=== PATIENT | female | born 1965 | race Caucasian/White ===

== ENCOUNTER 2018-03-11 17:57 | Emergency (ER) | payer OTHER ==
[~2018-03-11] VITALS: Ht 160 cm; Wt 75.5 kg
[2018-03-11 18:15] VITALS: Ht 160 cm; Wt 75.5 kg
[2018-03-11 18:40] LABS: BASOPHILS 0.7 % (0-2); EOSINOPHILS 1.9 % (0-7); HEMATOCRIT 41.6 % (36.0-48.0); IMMATURE GRANULOCYTES 0.3 % (0-5); LYMPHOCYTES 33.4 % (15-50); MCH 30.4 pg (26.0-34.0); MCHC 33.7 g/dL (31.0-37.0); MCV 90.2 fL (80.0-100.0); MEAN PLATELET VOLUME 10.6 fL (7.4-10.4); NEUTROPHILS 57.7 % (40-80); PLATELET COUNT 397 10x3/uL (130-400); RBC 4.61 10x6/uL (4.00-5.40); RDW 14.1 % (11.5-14.5); WBC 9.4 10x3/uL (4.8-10.8)
[2018-03-11 18:56] LABS: APPEARANCE CLEAR (CLEAR); BILIRUBIN NEGATIVE (NEGATIVE); COLOR YELLOW (YELLOW); GLUCOSE 1000 mg/dL (NEGATIVE); KETONE NEGATIVE (NEGATIVE); NITRITE NEGATIVE (NEGATIVE); PROTEIN NEGATIVE (NEGATIVE); SPECIFIC GRAVITY 1.025 (1.005-1.020); UROBILINOGEN NORMAL (NORMAL)
[2018-03-11 19:12] LABS: ALBUMIN 3.7 g/dL (3.4-5.0); BILIRUBIN - TOTAL 0.23 mg/dL (0.2-1.3); CALCIUM 9.4 mg/dL (8.5-10.1); CARBON DIOXIDE 24.8 mmol/L (21.0-32.0); CREATININE - SERUM 1.1 mg/dL (0.6-1.3); POTASSIUM - SERUM 3.8 mmol/L (3.5-5.1); PROTEIN - SERUM 7.5 g/dL (6.4-8.2)
[2018-03-11 21:28] VITALS: BP 121/79
[2018-04-12 12:17] VITALS: Ht 160 cm; Wt 75.5 kg
== END 2018-03-11 21:28 | disposition home or self-care (01) ==
LOC: D.ER 17:57
PROVIDERS: Emergency Medicine
DX: R25.1 Tremor, unspecified (principal); Z97.8 Presence of other specified devices

== ENCOUNTER 2018-04-11 10:16 | Inpatient (IN) | payer OTHER ==
[2018-04-11] VITALS (7 sets, daily range): BP systolic 136–158; BP diastolic 56–80; BMI 27.5
[~2018-04-11] VITALS: Ht 160 cm; Wt 70.5 kg
[2018-04-11 11:18] LABS: BASOPHILS 0.3 % (0-2); EOSINOPHILS 0 % (0-7); HEMATOCRIT 47.2 % (36.0-48.0); HEMOGLOBIN 15.9 g/dL (12-16); IMMATURE GRANULOCYTES 0.2 % (0-5); LYMPHOCYTES 9.8 % (15-50); MCH 30.8 pg (26.0-34.0); MCHC 33.7 g/dL (31.0-37.0); MCV 91.3 fL (80.0-100.0); MONOCYTES 7.9 % (2-11); NEUTROPHILS 81.8 % (40-80); PLATELET COUNT 347 10x3/uL (130-400); RBC 5.17 10x6/uL (4.00-5.40); RDW 13.8 % (11.5-14.5); WBC 16.3 10x3/uL (4.8-10.8)
[2018-04-11 11:30] LABS: APTT 30.3 SECONDS (22.8-39.4); INR 1.05 (0.85-1.17); PROTIME 13.3 SECONDS (11.6-15.0)
[2018-04-11 11:32] LABS: ALBUMIN 4.1 g/dL (3.4-5.0); ANION GAP 22.8 mmol/L (8-16); BILIRUBIN - TOTAL 0.43 mg/dL (0.2-1.3); CALCIUM 9.4 mg/dL (8.5-10.1); CARBON DIOXIDE 18.9 mmol/L (21.0-32.0); CREATININE - SERUM 0.9 mg/dL (0.6-1.3); POTASSIUM - SERUM 4.7 mmol/L (3.5-5.1); PROTEIN - SERUM 7.8 g/dL (6.4-8.2)
[2018-04-11 11:35] LABS: APPEARANCE CLEAR (CLEAR); BILIRUBIN NEGATIVE (NEGATIVE); COLOR YELLOW (YELLOW); EPITHELIAL CELLS OCC /hpf (0-5); GLUCOSE 1000 mg/dL (NEGATIVE); KETONE MODERATE mg/dL (NEGATIVE); NITRITE NEGATIVE (NEGATIVE); PROTEIN NEGATIVE (NEGATIVE); RED CELLS - URINE OCC /hpf (0-5); SPECIFIC GRAVITY 1.025 (1.005-1.020); UROBILINOGEN NORMAL (NORMAL); WHITE CELLS - URINE NSEEN /hpf (0-5)
[2018-04-11 19:14] LABS: HEMATOCRIT 44.9 % (36.0-48.0); HEMOGLOBIN 14.7 g/dL (12-16)
[2018-04-12] VITALS (22 sets, daily range): BP systolic 124–169; BP diastolic 62–89; Ht 160 cm; Wt 70.5 kg
[2018-04-12 04:59] LABS: BASOPHILS 0.3 % (0-2); EOSINOPHILS 0.1 % (0-7); HEMATOCRIT 43.4 % (36.0-48.0); HEMOGLOBIN 14.5 g/dL (12-16); IMMATURE GRANULOCYTES 0.3 % (0-5); LYMPHOCYTES 11.9 % (15-50); MCH 30.5 pg (26.0-34.0); MCHC 33.4 g/dL (31.0-37.0); MCV 91.4 fL (80.0-100.0); MEAN PLATELET VOLUME 11.2 fL (7.4-10.4); MONOCYTES 7.6 % (2-11); NEUTROPHILS 79.8 % (40-80); PLATELET COUNT 312 10x3/uL (130-400); RBC 4.75 10x6/uL (4.00-5.40); WBC 15.6 10x3/uL (4.8-10.8)
[2018-04-12 05:26] LABS: ALBUMIN 3.5 g/dL (3.4-5.0); ALKALINE PHOSPHATASE 87 U/L (46-116); ALT (SGPT) 26 U/L (10-68); BILIRUBIN - TOTAL 0.49 mg/dL (0.2-1.3); CALCIUM 8.5 mg/dL (8.5-10.1); CARBON DIOXIDE 18.9 mmol/L (21.0-32.0); CHLORIDE - SERUM 105 mmol/L (98-107); CREATININE - SERUM 0.8 mg/dL (0.6-1.3); POTASSIUM - SERUM 4.2 mmol/L (3.5-5.1); PROTEIN - SERUM 7.3 g/dL (6.4-8.2); SODIUM 140 mmol/L (136-145); eGFR NON AFRICAN AMERICAN 80 mL/min (90-120)
[2018-04-12 05:32] LABS: CALC OSMOLALITY 280 mosm/kg (275-300); GLUCOSE 124 mg/dL (74-106); UREA NITROGEN 16 mg/dL (7-18)
[2018-04-13] VITALS (19 sets, daily range): BP systolic 108–159; BP diastolic 50–96
[2018-04-13 07:52] LABS: BASOPHILS 0.4 % (0-2); EOSINOPHILS 0.3 % (0-7); HEMATOCRIT 45.8 % (36.0-48.0); HEMOGLOBIN 15.4 g/dL (12-16); IMMATURE GRANULOCYTES 0.2 % (0-5); LYMPHOCYTES 16.5 % (15-50); MCH 30.7 pg (26.0-34.0); MCHC 33.6 g/dL (31.0-37.0); MCV 91.4 fL (80.0-100.0); MEAN PLATELET VOLUME 10.8 fL (7.4-10.4); MONOCYTES 8.2 % (2-11); NEUTROPHILS 74.4 % (40-80); PLATELET COUNT 299 10x3/uL (130-400); RBC 5.01 10x6/uL (4.00-5.40); WBC 13.5 10x3/uL (4.8-10.8)
[2018-04-13 08:01] LABS: CALC OSMOLALITY 276 mosm/kg (275-300); CALCIUM 8.9 mg/dL (8.5-10.1); CARBON DIOXIDE 16.3 mmol/L (21.0-32.0); CHLORIDE - SERUM 103 mmol/L (98-107); CREATININE - SERUM 0.8 mg/dL (0.6-1.3); GLUCOSE 157 mg/dL (74-106); MAGNESIUM - SERUM 1.7 mg/dL (1.8-2.4); SODIUM 137 mmol/L (136-145); UREA NITROGEN 13 mg/dL (7-18); eGFR NON AFRICAN AMERICAN 80 mL/min (90-120)
[2018-04-14 05:14] VITALS: BP 118/53
[2018-04-14 07:45] VITALS: BP 125/71
[2018-04-14 11:24] VITALS: BP 117/66
[2018-04-14 16:29] VITALS: BP 123/66
[2018-04-14 23:47] VITALS: BP 122/71
[2018-04-15 00:24] VITALS: BP 122/71
[2018-04-15 04:15] VITALS: BP 100/49
[2018-04-15 05:45] LABS: BASOPHILS 0.7 % (0-2); EOSINOPHILS 1.6 % (0-7); HEMATOCRIT 39.2 % (36.0-48.0); HEMOGLOBIN 13.4 g/dL (12-16); IMMATURE GRANULOCYTES 0.1 % (0-5); LYMPHOCYTES 31.5 % (15-50); MCH 30.2 pg (26.0-34.0); MCHC 34.2 g/dL (31.0-37.0); MEAN PLATELET VOLUME 10.8 fL (7.4-10.4); MONOCYTES 10.3 % (2-11); NEUTROPHILS 55.8 % (40-80); PLATELET COUNT 287 10x3/uL (130-400); RBC 4.43 10x6/uL (4.00-5.40); RDW 13.5 % (11.5-14.5)
[2018-04-15 06:05] LABS: CALCIUM 8.4 mg/dL (8.5-10.1); CHLORIDE - SERUM 106 mmol/L (98-107); CREATININE - SERUM 0.7 mg/dL (0.6-1.3); GLUCOSE 160 mg/dL (74-106); SODIUM 142 mmol/L (136-145); eGFR NON AFRICAN AMERICAN > 90 mL/min (90-120)
[2018-04-15 06:06] LABS: CALC OSMOLALITY 283 mosm/kg (275-300); CARBON DIOXIDE 24.4 mmol/L (21.0-32.0); POTASSIUM - SERUM 3.3 mmol/L (3.5-5.1); UREA NITROGEN 8 mg/dL (7-18)
[2018-04-15 06:09] LABS: MCV 88.5 fL (80.0-100.0)
[2018-04-15 07:37] VITALS: BP 112/61
[2018-04-15] MEDS ORDERED: FLAGYL500 MG PO ×2 (09:13→10:02)
[2018-04-15] MEDS ORDERED: LEVAQUIN750 MG PO ×2 (09:13→10:02)
== END 2018-04-15 11:25 | disposition home or self-care (01) | DRG 378 ==
LOC: D.ER 10:16 → D.ICU 16:22 → D.M3 16:22 → D.ICU 20:14 → D.M3 04-13 18:03
PROVIDERS: Family Medicine; Internal Medicine Gastroenterology; Internal Medicine Nephrology
DX: K92.2 Gastrointestinal hemorrhage, unspecified (principal); D62 Acute posthemorrhagic anemia; K52.9 Noninfective gastroenteritis and colitis, unspecified; I10 Essential (primary) hypertension; E11.9 Type 2 diabetes mellitus without complications

== ENCOUNTER 2018-04-15 17:03 | Emergency (ER) | payer OTHER ==
[~2018-04-15] VITALS: Ht 160 cm; Wt 68.2 kg
[~2018-04-15 17:03] MED LIST: FLAGYL500 MG PO; LEVAQUIN750 MG PO
[2018-04-15 17:20] VITALS: Ht 160 cm; Wt 68.2 kg
[2018-04-15 18:05] LABS: BASOPHILS 0.6 % (0-2); EOSINOPHILS 0.4 % (0-7); HEMATOCRIT 43.1 % (36.0-48.0); HEMOGLOBIN 14.7 g/dL (12-16); IMMATURE GRANULOCYTES 0.3 % (0-5); LYMPHOCYTES 24.3 % (15-50); MCH 30.5 pg (26.0-34.0); MCHC 34.1 g/dL (31.0-37.0); MCV 89.4 fL (80.0-100.0); MEAN PLATELET VOLUME 10.9 fL (7.4-10.4); MONOCYTES 8.9 % (2-11); NEUTROPHILS 65.5 % (40-80); PLATELET COUNT 305 10x3/uL (130-400); RBC 4.82 10x6/uL (4.00-5.40); RDW 13.6 % (11.5-14.5)
[2018-04-15 18:19] LABS: ALBUMIN 3.7 g/dL (3.4-5.0); ALKALINE PHOSPHATASE 74 U/L (46-116); ALT (SGPT) 19 U/L (10-68); BILIRUBIN - TOTAL 0.36 mg/dL (0.2-1.3); CALCIUM 9.1 mg/dL (8.5-10.1); CARBON DIOXIDE 20.4 mmol/L (21.0-32.0); CHLORIDE - SERUM 103 mmol/L (98-107); CREATININE - SERUM 0.7 mg/dL (0.6-1.3); PROTEIN - SERUM 7.3 g/dL (6.4-8.2); SODIUM 138 mmol/L (136-145); eGFR NON AFRICAN AMERICAN > 90 mL/min (90-120)
[2018-04-15 18:21] LABS: CALC OSMOLALITY 282 mosm/kg (275-300); GLUCOSE 242 mg/dL (74-106); UREA NITROGEN 11 mg/dL (7-18)
[2018-04-15 18:49] LABS: APPEARANCE CLEAR (CLEAR); BILIRUBIN NEGATIVE (NEGATIVE); COLOR YELLOW (YELLOW); GLUCOSE 1000 mg/dL (NEGATIVE); KETONE LARGE mg/dL (NEGATIVE); NITRITE NEGATIVE (NEGATIVE); PROTEIN NEGATIVE (NEGATIVE); SPECIFIC GRAVITY 1.025 (1.005-1.020); UROBILINOGEN NORMAL (NORMAL)
[2018-04-15 22:20] VITALS: BP 151/67
== END 2018-04-15 22:20 | disposition home or self-care (01) ==
LOC: D.ER 17:03
PROVIDERS: Family Medicine
DX: K92.2 Gastrointestinal hemorrhage, unspecified (principal); R10.32 Left lower quadrant pain; E11.9 Type 2 diabetes mellitus without complications; R11.2 Nausea with vomiting, unspecified; Z85.41 Personal history of malignant neoplasm of cervix uteri; Z85.42 Personal history of malignant neoplasm of other parts of uterus

== ENCOUNTER → 2018-06-14 06:10 | Outpatient (CLI) | payer OTHER ==
[2018-04-15 17:20] VITALS: BMI 26.6
== END | disposition home or self-care (01) ==
LOC: D.NM 06:10
DX: R11.0 Nausea (principal); K59.00 Constipation, unspecified; R10.32 Left lower quadrant pain; K21.0 Gastro-esophageal reflux disease with esophagitis

== ENCOUNTER → 2018-06-17 07:19 | Outpatient (CLI) | payer OTHER ==
[2018-04-15 17:20] VITALS: BMI 26.6
[~2018-06-17 07:19] MED LIST changes: +OMEPRAZOLE20 M1 PO; +VOLTAREN75 MG PO; +ZANAFLEX4 MG PO
== END | disposition home or self-care (01) ==
LOC: D.CT 07:19
DX: R11.0 Nausea (principal); K59.00 Constipation, unspecified; R10.32 Left lower quadrant pain; R10.13 Epigastric pain; K21.0 Gastro-esophageal reflux disease with esophagitis

== ENCOUNTER 2018-06-19 13:00 | Emergency (ER) | payer OTHER, MEDICAID ==
[~2018-06-19] VITALS: Ht 160 cm; Wt 70.5 kg
[~2018-06-19 13:00] MED LIST changes: -OMEPRAZOLE20 M1 PO; -VOLTAREN75 MG PO; -ZANAFLEX4 MG PO
[2018-06-19 13:08] VITALS: Ht 160 cm; Wt 70.5 kg
[2018-06-19] MEDS ORDERED: VOLTAREN75 MG PO (18:50)
[2018-06-19] MEDS ORDERED: ZANAFLEX4 MG PO (18:50)
[2018-06-19] MEDS ORDERED: OMEPRAZOLE20 M1 PO (18:50)
[2018-06-19 19:00] VITALS: BP 122/56
== END 2018-06-19 19:01 | disposition home or self-care (01) ==
LOC: D.ER 13:00
DX: M54.9 Dorsalgia, unspecified (principal); M62.838 Other muscle spasm; E11.9 Type 2 diabetes mellitus without complications

== ENCOUNTER → 2018-07-05 12:36 | Outpatient (CLI) | payer OTHER, MEDICAID ==
[2018-06-19 13:08] VITALS: BMI 27.5
[~2018-07-05 12:36] MED LIST changes: +OMEPRAZOLE20 M1 PO; +VOLTAREN75 MG PO; +ZANAFLEX4 MG PO
== END | disposition home or self-care (01) ==
LOC: D.RAD 12:36
DX: R13.19 Other dysphagia (principal)

== ENCOUNTER 2018-11-29 16:30 | Emergency (ER) | payer OTHER ==
[~2018-11-29] VITALS: Ht 160 cm; Wt 72.7 kg
[2018-11-29 16:44] VITALS: Ht 160 cm; Wt 72.7 kg
[2018-11-29] MEDS ORDERED: LISINOPRIL2.5 MG PO (16:48)
[2018-11-29] MEDS ORDERED: ZOCOR10 MG PO (16:49)
[2018-11-29] MEDS ORDERED: [UNRECOGNIZED DRUG - REMARK] (16:50)
[2018-11-29] MEDS ORDERED: GLUCOPHAGE500 MG PO (16:50)
[2018-11-29] MEDS ORDERED: INVOKANA100 MG PO (16:50)
[2018-11-29] MEDS ORDERED: CYCLOBENZAPRINE10 MG PO (16:51)
[2018-11-29] MEDS ORDERED: BASAGLAR K100 UNIT/1 SC (16:52)
[2018-11-29] MEDS ORDERED: LYRICA75 MG PO (16:52)
[2018-11-29] MEDS ORDERED: ROBAXIN500 MG PO (18:21)
[2018-11-29] MEDS ORDERED: TORADOL10 MG PO (18:21)
[2018-11-29 18:54] VITALS: BP 110/72
== END 2018-11-29 18:55 | disposition home or self-care (01) ==
LOC: D.ER 16:30
DX: M54.5 Low back pain (principal); G89.29 Other chronic pain; M62.830 Muscle spasm of back

== ENCOUNTER 2019-10-01 20:37 | Emergency (ER) | payer OTHER ==
[~2019-10-01] VITALS: Ht 160 cm; Wt 72.7 kg
[~2019-10-01 20:37] MED LIST changes: +BASAGLAR K100 UNIT/1 SC; +CYCLOBENZAPRINE10 MG PO; +GLUCOPHAGE500 MG PO; +INVOKANA100 MG PO; +LISINOPRIL2.5 MG PO; +LYRICA75 MG PO; +ROBAXIN500 MG PO; +TORADOL10 MG PO; +ZOCOR10 MG PO; +[UNRECOGNIZED DRUG - REMARK]
[2019-10-01 20:52] VITALS: Ht 160 cm; Wt 72.7 kg
--- NOTE | 2019-10-01 21:21 | NUR ---
NOTIFIED CHARGE NURSE AND ATTENDING OF ASSESSMENT RESULTS. DR. ALVAREZ NOTIFIED OF BEVHAVIOR AND ASSESSMENT RESULTS. DR. ALVAREZ STATED TO GIVE PT RESOURCES AT TIME OF DISCHARGE. NO FURTHER ORDERS AT THIS TIME. RESOURCES REVEIWED WITH PT AND SHE VERBALIZED UNDERSTANDING.
[2019-10-01] MEDS ORDERED: NAPROSYN500 MG PO (21:35)
[2019-10-01 21:50] VITALS: BP 132/89
== END 2019-10-01 21:46 | disposition home or self-care (01) ==
LOC: D.ER 20:37
DX: S63.615A Unspecified sprain of left ring finger, initial encounter (principal); M79.642 Pain in left hand; E11.9 Type 2 diabetes mellitus without complications; Z79.84 Long term (current) use of oral hypoglycemic drugs; X58.XXXA Exposure to other specified factors, initial encounter; Y93.9 Activity, unspecified; Y92.9 Unspecified place or not applicable

== ENCOUNTER → 2019-10-10 21:20 | Outpatient (CLI) | payer OTHER ==
[2019-10-01 20:52] VITALS: BMI 28.4
[~2019-10-10 21:20] MED LIST changes: +NAPROSYN500 MG PO
== END | disposition home or self-care (01) ==
LOC: D.MAMMO 09-04 09:15
PROVIDERS: ATTEND Nurse Practitioner Family
DX: Z12.31 Encounter for screening mammogram for malignant neoplasm of breast (principal)